=== PATIENT | female | born 1995 | race Caucasian/White ===

== ENCOUNTER 2017-09-08 18:30 | Outpatient (CLI) | END 2017-09-08 20:40 | disposition home or self-care (01) ==

== ENCOUNTER 2017-10-19 15:40 | Inpatient (IN) | END 2017-10-22 16:50 | disposition home or self-care (01) | DRG 766 ==

== ENCOUNTER 2017-10-29 23:07 | Emergency (ER) | END 2017-10-30 03:58 | disposition home or self-care (01) ==